=== PATIENT | female | born 1980 | race African-American/Black ===

== ENCOUNTER 2020-05-17 08:44 | Day surgery (SDC) | payer OTHER ==
[2020-05-17 08:56] LABS: Urine Appearance CLEAR; Urine Bilirubin NEGATIVE (NEG); Urine Blood NEGATIVE (NEG); Urine Color YELLOW; Urine Glucose NEGATIVE (NEG); Urine Protein NEGATIVE (NEG); Urine Urobilinogen 0.2 mg/dL (0.2-1.0); Urine pH 7.5 (5.0-7.0)
[2020-05-17 08:57] LABS: Urine Microscopic Reflex NO UMIC
--- NOTE | 2020-05-17 09:02 | RAD REPORT ---
EXAM DESCRIPTION: RAD - Chest Pa And Lat (2 Views) - 05/17/2020 8:51 am CLINICAL HISTORY: PRE OP Chest pain. COMPARISON: No comparisons FINDINGS: The lungs are clear. The heart is normal in size. No displaced fractures. IMPRESSION: No acute or concerning finding suspected.
[2020-05-17 09:11] LABS: Absolute Lymphocytes (CBC) 2.6 K/uL (0.7-4.9); Basophils % 0.4 % (0-1.3); Hematocrit 34.9 % (36.0-45.0); Lymphocytes % 45.9 % (15.3-44.8); MPV 8.9 fL (7.6-11.3); RBC Red Blood Cell Count 5.07 M/uL (3.86-4.86)
[2020-05-17] MEDS ORDERED: CEFAZOLIN/SWI 1gm 1 GM/10 ML SYR ONE (09:13)
[2020-05-17] MEDS ORDERED: Ringers Lactate 1,000 ML IV ONE ×4 (09:13→15:06)
[2020-05-17] MEDS ORDERED: SCOPOLAMINE HYDROBROMIDE PATCH TD ONE (09:13)
[2020-05-17] MEDS ORDERED: CEFAZOLIN SODIUM 1 GM/VIAL ONE (09:18)
[2020-05-17] MEDS ORDERED: NS 0.9% VIAL 40 ML ONE (09:18)
[2020-05-17] MEDS ORDERED: GENTAMICIN SULF 80 MG/2ML INJ ONE (09:18)
[2020-05-17] MEDS ORDERED: LIDOCAINE 1% W/EPI 1:100,000 MDV 20 ML VIAL ONE (09:19)
[2020-05-17] MEDS ORDERED: Mastisol Adhesive Liq ONE (09:19)
[2020-05-17] MEDS ORDERED: BACITRACIN 50000 UNIT VIAL ONE (09:19)
[2020-05-17] MEDS ORDERED: dexAMETHasone 10 MG/ML VIAL ONE (09:31)
[2020-05-17] MEDS ORDERED: GLYCOPYRROLATE 0.2 MG/ML SYR ONE ×2 (09:31)
[2020-05-17] MEDS ORDERED: ONDANSETRON 4 MG/2 ML VIAL ONE (09:31)
[2020-05-17] MEDS ORDERED: ROCURONIUM 50 MG/5 ML VIAL IV ONE ×2 (09:31→11:08)
[2020-05-17] MEDS ORDERED: FENTANYL CITR 250 MCG/5 ML ONE (09:31)
[2020-05-17] MEDS ORDERED: propofoL 200 MG/20 ML VIAL IV ONE (09:31)
[2020-05-17] MEDS ORDERED: MIDAZOLAM HCL 2 MG/2 ML INJ ONE (09:31)
[2020-05-17] MEDS ORDERED: LIDOCAINE 2% MPF 5 ML VIAL ONE (09:31)
--- OUTSIDE RECORDS SUMMARY | 2020-05-17 09:55 | XMS REPORT | Clinical Summary ---
:1980 Author Organization [facility] Address [address] [place] [address] Care Team Providers Name Role Phone Asked, No Pcp Primary Care Provider Unavailable Allergies No Known Allergies Medications Medication Sig Dispensed Refills Start Date End Date Status CITRANATAL 90 0 08/24/2019 Activ e DHA, ALGAL OIL, 90 mg iron-1 mg -50 mg-300 mg combo pack ferrous sulfate Take 1 tablet 3 08/10/2019 Discontinued 325 (65 FE) MG by mouth 2 9 (Sto p Taking at tablet (two) times a Discha rge) day. ferrous sulfate Take 1 tablet 60 tablet 0 08/30/2019 (FERROUSUL) 325 (325 mg total) 9 (65 FE) MG by mouth 2 tablet (two) times a day for 30 days. docusate sodium Take 1 capsule 20 capsule 0 08/30/2019 01 (COLACE) 100 MG (100 mg total) 9 capsule by mouth 2 (two) times a day for 10 days. ibuprofen Take 1 tablet 40 tablet 0 08/30/2019 Expir ed (ADVIL) 600 MG (600 mg total) 9 tablet by mouth every 6 (six) hours as needed for mild pain for up to 30 days. acetaminophen-co Take 1 tablet 20 tablet 0 08/30/2019 09/09/20 1 deine (TYLENOL by mouth every 9 WITH CODEINE #3) 4 (four) hours 300-30 mg per as needed for tabletIndication moderate pain s: acute pain for up to 10 days .Acute Pain. Active Problems Problem Noted Date Term 08/28/2019 (normal spontaneous vaginal delivery) 08/28/2019 Encounters Date Type Specialty Care Team Description 08/28/2019 Anesthesia Event Obstetrics and Bora Garcia Gynecology MD Gianluca 08/28/2019 - Hospital Encounter Obstetrics and Ifeanyi Rodrigues 08/30/2019 Gynecology MD Keke 08/25/2019 Hospital Encounter Obstetrics Ifeanyi Rodrigues MD after 05/17/2019 Immunizations Name Administration Dates Next Due Tdap 08/29/2019 Family History Medical History Relation Name Comments No Known Problems Father No Known Problems Mother Relation Name Status Comments Father Alive Mother Alive Social History Tobacco Use Types Packs/Day Years Used Date Never Smoker Smokeless Tobacco: Never Used Alcohol Use Drinks/Week oz/Week Comments Not Currently Sex Assigned at Date Recorded Not on file Job Start Date Occupation Industry Not on file Not on file Not on file Travel History Travel Start Travel End No recent travel history available. Last Filed Vital Signs Vital Sign Reading Time Taken Comments Blood Pressure 121/79 08/30/2019 7:13 AM [facility] Pulse 72 08/30/2019 7:13 AM [facility] Temperature 36.7 C (98 F) 08/30/2019 7:13 AM [facility] Respiratory Rate 18 08/30/2019 7:13 AM [facility] Oxygen Saturation 99% 08/29/2019 7:29 PM [facility] Inhaled Oxygen Concentration - - Weight - - Height - - Body Mass Index - - Plan of Treatment Health Maintenance Due Date Last Done Comments CERVICAL CANCER SCREENING 2003 INFLUENZA VACCINE 05/14/2020 Procedures Procedure Name Priority Date/Time Associated Comments Diagnosis HC COMPLETE BLD COUNT Routine 08/29/2019 5:53 Re sults for this W/AUTO DIFF AM [facility] procedure are i n the results section. ANESTHESIA EPIDURAL Routine 08/28/2019 4:33 Resu lts for this BLOCK PM [facility] procedure are i n the results section. HEPATITIS B SURFACE Routine 08/28/2019 8:40 Resu lts for this AG CONFIRMATION AM [facility] procedure ar e in the results section. TYPE AND SCREEN, Routine 08/28/2019 8:40 Results for this OBSTETRICAL PATIENT AM [facility] procedur e are in the results section. HEPATITIS B SURFACE Routine 08/28/2019 8:40 Resu lts for this ANTIGEN AM [facility] procedure are i n the results section. HC COMPLETE BLD COUNT Routine 08/28/2019 8:40 Re sults for this W/AUTO DIFF AM [facility] procedure are i n the results section. HIV 1, 2 ANTIBODY Routine 08/06/2019 Results fo r this procedure are i n the results section. HEPATITIS B SURFACE Routine 08/06/2019 Results for this ANTIGEN procedure are i n the results section. CBC WITH PLATELET AND Routine 08/06/2019 Result s for this DIFFERENTIAL procedure are i n the results section. RPR TITER WITH REFLEX Routine 08/06/2019 Result s for this TO CONFIRMATION procedure ar e in the results section. BETA STREP SCREEN Routine 08/06/2019 Results fo r this CULTURE WITH ALVAREZ procedure a re in BROTH the results section. RUBELLA AB IGG Routine 07/02/2019 Results for t his procedure are i n the results section. HIV 1, 2 ANTIBODY Routine 07/02/2019 Results fo r this procedure are i n the results section. HEPATITIS B SURFACE Routine 07/02/2019 Results for this ANTIGEN procedure are i n the results section. CBC WITH PLATELET AND Routine 07/02/2019 Result s for this DIFFERENTIAL procedure are i n the results section. GESTATIONAL DIABETES Routine 07/02/2019 Results for this SCREEN procedure are i n the results section. TYPE AND SCREEN, Routine 07/02/2019 Results for this OBSTETRICAL PATIENT procedur e are in the results section. RPR TITER WITH REFLEX Routine 07/02/2019 Result s for this TO CONFIRMATION procedure ar e in the results section. CHLAMYDIA CULTURE Routine 07/02/2019 Results fo r this procedure are i n the results section. GONORRHOEAE CULTURE Routine 07/02/2019 Results for this procedure are i n the results section. after 05/17/2019 Results CBC with platelet and differential (08/29/2019 5:53 AM [facility])Only the most recent of4 resultswithin the time period is included. WBC 8.6Comment: 4.5 - 11.0 DIVYA WRIGHT Results repeated k/uL [facility] RBC 4.76 4.20 - 5.50 [facility] M[facility]uL [facility] HGB 10.8 (L) 14.0 - 18.0 [facility] g/dL [facility] HCT 33.4 (L) 37.0 - 47.0 % [facility] MCV 70.2 (L) 82.0 - 100.0 [facility] fL [facility] MCH 22.7 (L) 27.0 - 34.0 EDEN SIKHISM pg [facility] MCHC 32.3 31.0 - 37.0 [facility] g/dL [facility] RDW - SD 37.4 37.0 - 55.0 [facility] fL [facility] MPV 13.0 8.8 - 13.2 fL [facility] Platelet count 185 150 - 400 [facility] K/uL [facility] Nucleated RBC 0.00 /100 WBC [facility] Neutrophils 73.6 (H) 39.0 - 69.0 % [facility] Lymphocytes 17.7 (L) 25.0 - 45.0 % [facility] Monocytes 8.0 0.0 - 10.0 % [facility] Eosinophils 0.3 0.0 - 5.0 % [facility] Basophils 0.1 0.0 - 1.0 % [facility] Immature 0.3Comment: 0.0 - 1.0 % [facility] granulocytes "Immature [facility] (promyelocytes, myelocytes, metamyelocytes) Specimen Blood Performing Organization Address City/[facility]/Zipcomn Phone Number [facility] DEPARTMENT OF PATHOLOGY [address] [place] [address] [phone] AND [facility]INE [facility] [address] [facility] [address] [place] [address] [facility] Epidural Block (08/28/2019 4:33 PM [facility]) Narrative Performed At Bora Garcia MD 08/14 4:34 PM Epidural Block Date/Time: 08/28/2019 4:25 PM Performed by: Bora Garcia MD Authorized by: Bora Garcia MD Patient Location: OB Start Time: 08/28/2019 4:16 PM End Time: 08/28/2019 4:33 PM Reason for Block: at surgeon's request, post-op pain m anagement, procedure for pain, labor epidural Anesthesiologist: Bora Garcia MD Performed by: Anesthesiologist Preprocedure: patient identified, IV magdaleno cked, site and side verified, risks and benefits discussed, procedure verified, surgical consent completed, patient position confirmed, m onitors and equipment checked, pre-op evaluation completed and coagulat ion status reviewed Time Out Performed: 08/28/2019 4:16 PM Patient Position: Sitting Prep: ChloraPrep and patient draped Monitoring: Blood pressure monitoring, continuous pulse oximetry and heart rate Approach: Midline Interspace: L3-4 Injection Technique: SIMONA air and SIMONA s rosalia Needle Type: Bernadine Needle Gauge: 17 Loss of resistance: 5 cm Catheter at Skin Depth: 10 cm Test Dose: Negative and lidocaine 1.5% with epinephrine 1-to-200,000 Number of Attempts: 1 Pump program started: pain pump Block Outcome: No apparent complications, patient co mfortable and patient tolerated procedure well Post-procedure: Sterile dressing appli ed, patient returned to supine position and left lateral displacement Events: no paresthesia, no blood aspirat ed and no CSF Time: 08/28/2019 4:16 PM Pump program changed: pain pump Medications Administered Lidocaine 1.5% w/epINEPHrine PF (mg), 3 mL Type and screen, obstetrical patient (08/28/2019 8:40 AM [facility])Only the most recent of2 resultswithin the time period is included. Pathologist Sig nature ABO grouping O [facility] Rh type POS [facility] Antibody screen (gel) NEG [facility] Specimen Blood Performing Organization Address City/[facility]/Zipcode Phone Number [facility] DEPARTMENT OF PATHOLOGY [address] [place] [address] [phone] AND [facility] [address] [facility] [address] [place] [address] HOSPITAL Hepatitis B surface Ag confirmation (08/28/2019 8:40 AM [facility]) Hepatitis B surface Confirmed (A) Non-reactive [facility] confirmation HOSPITAL Specimen Performing Organization Address City/[facility]/Zipcode Phone Number [facility] DEPARTMENT OF PATHOLOGY AND [address] [place] [address] [phone] [address] Hepatitis B surface antigen (08/28/2019 8:40 AM M[facility]MIST)Only the most recent of3 resultswithin the time period is included. Hepatitis B Reactive (A) Non-reactive [facility] Ag Comment: HOSPITAL Sent to [facility] for confirmation . Notified Lenore Garcia RN at 11:18 08/28/2019 [email or web address] Specimen Blood Performing Organization Address City/State/Zipcode Phone Number [facility] DEPARTMENT OF PATHOLOGY AND [address] [place], [place] [phone] [facility] [address] [place] [address] RPR titer with reflex to confirmation (08/06/2019)Only the most recent of2 resultswithin the time period is included. Pathologist Sig nature RPR (dx) w/refl titer nonreactive EXTERNAL LAB and confirmatory NON-INTERFACED testing Specimen Blood Performing Organization Address [facility] Phone Number EXTERNAL LAB NON-INTERFACED Beta strep screen culture with alvarez broth (08/06/2019) Pathologist Sig nature Strep gp B culture negative EXTERNAL LAB NON-INTERFACED Specimen Vaginal Performing Organization Address [facility] Phone Number [facility] NON-INTERFACED HIV 1, 2 antibody (08/06/2019)Only the most recent of2 resultswithin the time period is included. Pathologist Sig nature HIV 1, 2 antibody negative EXTERNAL LAB NON-INTERFACED Specimen Blood Performing Organization Address [facility] Phone Number EXTERNAL LAB NON-INTERFACED Gestational Diabetes Screen (07/02/2019) Pathologist Sig nature Gestational diabetes 97 EXTERNAL LAB screen NON-INTERFACED Specimen Blood Performing Organization Address [facility] Phone Number EXTERNAL LAB NON-INTERFACED Rubella Ab IgG (07/02/2019) Pathologist Sig nature Rubella IgG antibody immune EXTERNAL LAB NON-INTERFACED Specimen Blood Performing Organization Address [facility] Phone Number EXTERNAL LAB NON-INTERFACED Chlamydia culture (07/02/2019) Pathologist Sig nature Chlamydia culture negative EXTERNAL LAB isolate NON-INTERFACED Specimen Swab Performing Organization Address [facility] Phone Number EXTERNAL LAB NON-INTERFACED Gonorrhoeae culture (07/02/2019) Pathologist Sig nature Gonorrhoeae culture negative EXTERNAL LAB isolate NON-INTERFACED Performing Organization Address [facility] Phone Number EXTERNAL LAB NON-INTERFACED after 05/17/2019 Insurance Payer Benefit Plan / Subscriber ID Effective Dates Phone Addre ss Type Group [employer] 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
--- OUTSIDE RECORDS SUMMARY | 2020-05-17 09:56 | XMS REPORT | Continuity of Care Document ---
:1980 Author Organization [employer] Care Team Providers Name Role Phone [employer] Unavailable Un available Problems Problem Status Onset Classification Date Comments Sourc e Date Reported Other specified 06/05/20 06/07/2019 [facility] 19 Hospital related conditions, unspecified trimester 27 weeks 06/05/20 [facility] ABDOMINAL PAIN Active 06/05/20 [facility] 19 [place] Patient Active 11/27/19 Problem 06/07/2019 [place] [address] [facility], (finding) [facility] CONTRACTIONS Active 10/31/[address] R/O LABOR Active 10/14/[address] VAGINAL DEL Active 09/30/[address] INDUCTION Active 09/30/[address] 2 MONTHS PREG Active 10/18/19 The WITH VAG BLEED 14 [place] Anemia Resolved Problem 12/06/2015 [facility] (disorder) [facility] Thalassemia Active Problem 12/06/2015 [facility] (disorder) [facility] Active [facility] RELATED Medical CONDITIONS, Center UNSP, UNSP PROLONGED Active [facility] Medications Medication Details Route Status Patient Ordering Order Source Instructions Provider Date 1 tab, Route: [facility] oral PO, Drug Active 2015 Medi prashanth tablet Form: TAB, Center Dosing Weight 85, kg, Daily, Start date: 12/02/15 9:00:00, Duration: 30 day, Stop date: 12/31/15 9:00:00 1 tab, PO, Active 12/01/ [facility] Multivitamins with Daily, # 30 2016 M edical Folic Acid 0.8 mg tab, 6 Center oral tablet Refill(s) ibuprofen 600 mg 600 mg = 1 Active 12/01/ [place] oral tablet tab, PO, Q6H, 2016 Medica l PRN Pain Center Score 4-6, # 40 tab, 0 Refill(s) docusate sodium 100 mg = 1 [place] mg oral cap, PO, BID, 2016 Medica l capsule PRN Center Constipation, # 60 cap, 0 Refill(s) 0.5 ML Bordetella Notes: (Tdap No Longer [facility] pertussis ) For Active 2016 Medical filamentous Adolecent and Center hemagglutinin Adult use For vaccine, IM Use. Same inactivated 0.01 as: Adacel MG/ML / Bordetella (Tdap) pertussis fimbriae 2/3 vaccine, inactivated 0.01 MG/ML / Bordetella pertussis pertactin vaccine, inactivated 0.006 MG/ML / Bordetella pertussis toxoid vacci M-M-R II Notes: (Same No Longer [facility] as: M-M-R II) Active 2015 Medical (measles-mum Center ps-rubella virus vaccine 0.5 ml INJ VL) WASTE: F/P - Red; E -Red GIVE PRIOR TO DISCHARGE Ibuprofen Notes: (Same No Longer [facility] s as: Motrin) Active 2015 Medical "Do Not Center Crush" Take with food. Acetaminophen Notes: Do not No Longer [place] exceed 4 Active 2015 [facility] gm/day. Center (Same as: Tylenol) lanolin topical Notes: (Same No Longer H [place] as:Lanolin) Active 2016 [facility] Center zolpidem Notes: (Same No Longer [facility] As: Ambien) Active 2016 [facility] Center Methylergonovine Notes: (Same No Longer [place] as:Methergine Active 2015 Medical ) Center Benzocaine 200 Notes: (Same No Longer [facility] MG/ML Topical As: Active 2015 Medical [place] [Dermoplast] Dermoplast) C enter WASTE: Aerosol - Return to Pharmacy FOR EXTERNAL USE ONLY Bisacodyl Notes: (Same No Longer [place] As: Dulcolax, Active 2015 [facility] Bisco-Lax) Center Lactated Ringers 1,000 mL, No Longer [place] IV 1,000 mL Rate: 100 Active 2015 Medical ml/hr, Infuse Center over: 10 hr, Route: IV, Dosing Weight 85 kg, Total Volume: 1,000, Start date: 12/01/15 10:25:00, Duration: 30 day, Stop date: 12/31/15 10:24:00 Oxytocin 0.06 Notes: (Same No Longer [place] UNT/ML Injectable as: Active 2016 Medica l Solution OXYTOCIN-D5LR Center ) Docusate Notes: (Same No Longer [place] as: Colace) Active 2016 Medical (Do Not Center Crush) Ondansetron Notes: (Same No Longer [place] as: Zofran) Active 2015 Medical Center MEDICATION WASTE Product Size: 4 mg Product Wasted: ___ mg Oxytocin 0.06 Notes: (Same No Longer [place] UNT/ML Injectable as: Active 2015 Medica l Solution OXYTOCIN-D5LR Center ) Citric Acid / Notes: (Same No Longer [place] sodium citrate As: Bicitra, Active 2015 [facility] Cytra-2) Center Sodium citrate-citri c acid (500-334 mg/5 mL): 1 mL contains sodium 1 mEq/mL and bicarbonate 1 mEq/mL Carboprost Notes: (Same No Longer [place] as As: Hemabate) Active 2016 Medical Center Misoprostol Notes: (Same [place] Longer [place] as:Cytotec) Active 2016 Medical Take with Center food Methylergonovine Notes: (Same No Longer [place] as:Methergine Active 2015 Medical ) Center Famotidine Notes: (Same No Longer [place] as as: Pepcid) Active 2016 Medical Can be dilute Center in 5-10cc NS IVP: Slow IV push over at least 2 minutes. 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 AREA Center (Same As: Kaylin) Calcium Chloride 1,000 mL, Inactive [place] 0.0014 MEQ/ML / 1,000 ml/hr, 2016 Med ical Potassium Chloride Infuse Over: Center 0.004 MEQ/ML / 1 hr, Route: Sodium Chloride IV, 1,000, 0.103 MEQ/ML / Drug form: Sodium Lactate INJ, ONCE, 0.028 MEQ/ML Dosing Weight Injectable 85 kg, Start Solution date: 12/01/15 1:55:00, Stop date: 12/01/15 1:55:00, Bolus for regional anesthesia per unit protocol lidocaine 1% Notes: (Same No Longer [place] injectable as: Active 2015 Medical solution Xylocaine) Center Oxytocin 0.06 Notes: (Same Inactive [place] UNT/ML Injectable as: 2015 Medica l Solution OXYTOCIN-D5LR Center ) Lactated Ringers 1,000 mL, No Longer [place] IV 1,000 mL Rate: 125 Active 2015 Medical ml/hr, Infuse Center over: 8 hr, Route: IV, Dosing Weight 85 kg, Total Volume: 1,000, Start date: 12/01/15 1:55:00, Duration: 30 day, Stop date: 12/31/15 1:54:00 Butorphanol Notes: (Same No Longer [place] As: Stadol) Active 2015 Medical Center MEDICATION WASTE Product Size: 2 mg Product Wasted: ___ mg lidocaine 1% Notes: (Same No Longer [place] as: Active 2015 Medical Xylocaine) Center Ondansetron Notes: (Same Inactive [place] as: Zofran) 2015 Medical Center MEDICATION WASTE Product Size: 4 mg Product Wasted: ___ mg Fe C 1 tab, PO, Active [place] Daily, 0 2015 Medical Refill(s) [place] 5/325 oral 1-2 tab, PO, Active May 14 The tablet Q4-6H, Pain, 2013 [place] # 15 tab, 0 Refill(s) Cytotec 200 mcg 200 microgram Active May 14 The oral tablet = 1 tab, PO, 2013 [facility] ds QID, # 4 tab, 0 Refill(s) acetaminophen-hydr 1 tab, Route: Inactive May 14 The ocodone 325 mg-5 PO, Drug 2013 [facility] nds mg oral tablet Form: TAB, Dosing Weight 52.273, kg, ONCE, STAT, Start date: 10/19/13 2:21:00, Stop date: 10/19/13 2:21:00(Same as: [place] 325/5) Do not exceed 4gm/day of acetaminophen . Allergies, Adverse Reactions, Alerts No Known Medication Allergies Immunizations No Data Provided for This Section Results Order Name Results Value Reference Date Interpretation Comments Grace rce Range HEMATOLOGY Hgb 9.6 12.0 - 12/02 [place] 16.0 /2016 [facility] HEMATOLOGY Hct 29.1 36.0 - 12/02 [place] 48.0 /2016 [facility] HEMATOLOGY MPV 9.1 7.4 - 10.4 12/01 [facility] HEMATOLOGY Platelet 191 133 - 450 12/01 /2015 [facility] HEMATOLOGY RDW 15.9 11.5 - 12/01 [place] 14.5 /2016 [facility] HEMATOLOGY Hgb 10.0 12.0 - 12/01 [place] 16.0 2016 [facility] HEMATOLOGY Hct 30.9 36.0 - 12/01 [place] 48.0 [facility] HEMATOLOGY MCV 69.1 80.0 - 12/01 [place] 98.0 /2015 [facility] HEMATOLOGY WBC 5.9 3.7 - 10.4 12/01 [facility] HEMATOLOGY RBC 4.46 4.20 - 12/01 [place] 5.40 /2016 [facility] HEMATOLOGY MCH 22.4 27.0 - 12/01 [place] 31.0 /2016 [facility] HEMATOLOGY MCHC 32.5 32.0 - 12/01 [place] 36.0 2016 [facility] HEMATOLOGY Monocytes # 0.5 0.0 - 0.8 12/01 [place] /2015 [facility] HEMATOLOGY Lymphocytes 2.2 1.0 - 5.5 12/01 [place] # /2015 [facility] HEMATOLOGY Microcyte 2+ None Seen 12/01 [place] *ABN* /2015 Medical (12/01/15 2:29 AM) [place] HEMATOLOGY Segs-Bands # 3.2 1.5 - 8.1 12/01 [place] as /2015 [facility] HEMATOLOGY Basophils 0.3 0.0 - 1.0 12/01 /2015 [facility] HEMATOLOGY Segs 54.6 45.0 - 12/01 [place] 75.0 /2016 [facility] HEMATOLOGY Lymphocytes 36.7 20.0 - 12/01 [place] 40.0 /2016 [facility] HEMATOLOGY Monocytes 8.0 2.0 - 12.0 12/01 [place] /2016 [facility] HEMATOLOGY Eosinophils 0.4 0.0 - 4.0 12/01 [place] /2015 [facility] IMMUNOLOGY Treponemal Non Reactive Non 12/01 [place] *NA* Reactive /2015 Medical (12/01/15 2:29 AM) [place] IMMUNOLOGY Hep Bs Ag Confirmed 1 12/01 Result Erica s Conf *NA* /2015 Comment: Medical (12/01/15 2:29 AM) "Significant C enter Findings called to [facility]_at 12/01/2015 06:48__by stp__.Read Back OK." IMMUNOLOGY Hep Bs Ag Positive Negative 12/01 [place] *NA* /2015 Medical (12/01/15 2:29 AM) [place] IMMUNOLOGY HIV. Negative Negative 12/01 [place] *NA* /2015 [facility] (12/01/15 2:29 AM) [place] BLOOD BANK Antibody Negative 12/01 [facility] RESULTS Scrn (12/01/15 2:21 AM) Medica l [place] BLOOD BANK ABO/Rh O POS 12/01 [facility] RESULTS /2015 [facility] CHEMISTRY hCG Tot [id number] 10/19 <sup>1</sup> [facility] Data: Reference Range:
Male 0 - 5 mIU/mL
Non- Female 0 - 5 mIU/mL
< br/>Note: hCG result should be used in conjunction with symptoms, results
of other tests, and clinical impressions.
<br/ >Weeks of Gestation hCG (mIU/mL)<br/ > ------- ----
3 6 - 71
4 10-750
5 217 - 7,138
6 158 -31,795<br/& gt; 7 3,697 - 163,563
8 32,065 - 149,571
9 63,803 - 151,410
10 46,506 - 186,977<b r/> 11 27,832 - 210,612
14 13,950 - 62,530
15 12,039 - 70,971
16 9,040 - 56,451
17 8,175 - 55,868
18 8,099 - 58,176 HEMATOLOGY Platelet 268 133 - 450 01/ Normal The [place] HEMATOLOGY MPV 9.0 7.4 - 10.4 / Normal The [place] HEMATOLOGY Hgb 11.4 12.0 - 10/19 LOW The 16.0 [place] HEMATOLOGY RBC X 10x6 4.98 4.20 - 10/19 Normal The 5.40 [place] HEMATOLOGY WBC X 10x3 6.6 3.7 - 10.4 / Normal The [place] HEMATOLOGY Hct 35.2 36.0 - 10/19 LOW The 48.0 [place] HEMATOLOGY MCHC 32.2 32.0 - 10/19 Normal The 36.0 [place] HEMATOLOGY MCH 22.8 27.0 - 10/19 LOW The 31.0 [place] HEMATOLOGY MCV 70.7 81.0 - 10/19 LOW The 99.0 [place] HEMATOLOGY RDW 14.0 11.5 - 10/19 Normal The 14.5 [place] HEMATOLOGY Lymphocytes 1.4 1.0 - 5.5 01/ Normal The [place] HEMATOLOGY Segs-Bands # 4.6 1.5 - 8.1 / Normal The [place] HEMATOLOGY Eosinophils 0.1 0.0 - 0.5 / Normal The # [place] HEMATOLOGY Basophils # 0.1 0.0 - 0.2 01/ Normal The [place] HEMATOLOGY Segs 70.4 45.0 - 10/19 Normal The 75.0 [place] HEMATOLOGY Monocytes # 0.4 0.0 - 0.8 01/06 Normal The [place] HEMATOLOGY Lymphocytes 21.2 20.0 - / Normal The 40.0 [place] HEMATOLOGY Basophils 1.0 0.0 - 1.0 01/ Normal The [place] HEMATOLOGY Monocytes 6.6 2.0 - 12.0 01/06 Normal The [place] HEMATOLOGY Eosinophils 0.8 0.0 - 4.0 01/ Normal The [place] Pathology Reports No Data Provided for This Section Diagnostic Reports Report Value Date Source complete NAME: SHAMIKA HU 10/19/2013 [facility] Single Gestation US : 1980 SEX: F MRN: [id number] Ordering Physician: Maricruz Dunn Complete Single Gestation : Oct 19, 2013 03:19:00 AM. CLINICAL INDICATION: Vaginal Bleeding. Comparison Examination: None. FINDINGS: The pelvic ultraso und static images show that the uterus measures 10.4 x 6 x 6.2 cm. There is an anteverted uterus. There is an anechoic focus s een in the lower uterine segment/cervix region, suggestive of a gestation sac. The sac measures approximately 1.4 x 1.2 x 1.1 cm. No pole or yolk sac is seen. Thickened , heterogeneous echotexture endometrial stripe is noted, measuring 3 cm. Recommend short interval followup with quantitative beta-hCG levels and sonography. The right ovary measures 3.7 x 2 x 3.1 cm and the left ovary measures 4.4 x 2.3 x 3.7 cm. Right ovarian corpus luteum type 1.9 x 1.3 x 1.8 cm cyst is seen. There is normal left ovarian contour and morphology. There are no adnexal masses. The limited Doppler images s how normal bilateral ovarian arterial and venous Doppler blood flow. There is no free fluid in the cul-de-sac. Opinion: 1. Anechoic focus seen in e lower uterine segment/cervix region, suggestive of a gestation sac. The sac measures approximately 1.4 x 1.2 x 1.1 cm. No pole or yolk sac seen. Thickened, heterogene ous echotexture endometrial stripe noted, measuring 3 cm. Recommend short interval followup with quantitative beta-hCG levels and sonography. 2. Right ovarian corpus luteum type 1.9 x 1.3 x 1.8 cm cyst. SL: 24 Consultation Notes No Data Provided for This Section Discharge Summaries No Data Provided for This Section History and Physicals No Data Provided for This Section Vital Signs Vital Sign Value Date Comments Source Systolic (mm Hg) 114 06/05/2019 [facility] Diastolic (mm Hg) 59 06/05/2019 [facility] Heart Rate 81 06/05/2019 [facility] Respitory Rate 16 06/05/2019 [facility] Temperature Oral (F) 98.1 F 06/05/2019 [facility] Height 162.56 cm 06/05/2019 [facility] BMI Calculated 33.37 06/05/2019 [facility] Weight 88.182 06/05/2019 [facility] Systolic (mm Hg) 116 12/03/2015 [facility] [place] Diastolic (mm Hg) 75 12/03/2015 [facility] Respitory Rate 18 12/03/2015 [facility] Heart Rate 80 12/03/2015 [facility] Temperature Oral (F) 98.2 F 12/03/2015 [facility] Systolic (mm Hg) 122 12/03/2015 [facility] Center Diastolic (mm Hg) 78 12/03/2015 [facility] Respitory Rate 18 12/03/2015 [facility] Heart Rate 67 12/03/2015 [facility] Temperature Oral (F) 98.2 F 12/03/2015 [facility] Temperature Oral (F) 98.1 F 12/03/2015 [facility] Center Systolic (mm Hg) 125 12/03/2015 [facility] Center Diastolic (mm Hg) 71 12/03/2015 [facility] Respitory Rate 18 12/03/2015 [facility] Heart Rate 77 12/03/2015 [facility] Height 162.56 cm 12/01/2015 [facility] BMI Calculated 32.17 12/01/2015 [facility] prashanth [place] Weight 85 12/01/2015 [facility] Systolic (mm Hg) 119 11/26/2015 [facility] Center Diastolic (mm Hg) 67 11/26/2015 [facility] Temperature Oral (F) 98.2 F 11/26/2015 [facility] Center Respitory Rate 22 11/26/2015 [facility] prashanth Center Weight 84.818 11/26/2015 [facility] Medica l Center BMI Calculated 32.1 11/26/2015 [facility] prashanth Center Height 162.56 cm 11/26/2015 [facility] BMI Calculated 31.99 11/26/2015 [facility] prashanth Center Weight 84.545 11/26/2015 [facility] Height 162.56 cm 11/26/2015 [facility] Center Systolic (mm Hg) 92 10/31/2015 [facility] Center Diastolic (mm Hg) 54 10/31/2015 [facility] [place] edical Center Weight 84.091 10/31/2015 [facility] Height 162.56 cm 10/31/2015 [facility] [place] BMI Calculated 31.82 10/31/2015 [facility] Center Diastolic (mm Hg) 58 10/19/2013 [facility] [place] Respitory Rate 20 10/19/2013 [facility] nds Systolic (mm Hg) 108 10/19/2013 [facility] Heart Rate 76 10/19/2013 [facility] [place] Weight 52.273 10/19/2013 [facility] [place] Height 165.1 cm 10/19/2013 [facility] [place] Heart Rate 81 10/19/2013 [facility] [place] Respitory Rate 18 10/19/2013 [facility] nds Diastolic (mm Hg) 69 10/19/2013 [facility] Systolic (mm Hg) 119 10/19/2013 [facility] Encounters Location Location Encounter Encounter Reason Attending ADM DC Stat us Source Details Type Number For Provider Date Date Visit The Emergency [id number] 2 MARICRUZ MAY 1410/19 Acti ve [place] 0 [facility] d PREG s WITH VAG BLEED [facility] OBS [id number] [facility]/31 [facility] [place] Patient [facility] OBS [id number] Apolinar 11/26 11/26 [facility] Observation 4 Gavin [facility] Inpatient [id number] Ifeanyi 12/01 12/03 [facility] 2 [facility] Emergency [id number] Avtar Shipley 06/05 06/05 [place] [facility] Procedures No Data Provided for This Section Assessment and Plan Assessment and Plan Date Source Extracted from:Title: Clinical Document 12/03/2015 [facility] Author: Marta Childers MD Date: 12/03/15 Discharge Summary Admission Date: 12/01/2015 Admission Diagnosis: 1) IUP at 39w4d 2) Hepatitis B 3) Sickle Cell Trait 4) Alpha thalassemia Discharge Date: 12/03/2015 Discharge Diagnosis: 1) s/p TSVD 2) Hepatitis B 3) Sickle Cell Trait 4) Alpha Thalassemia History and Physical: Please see H&P by Dr. Clark dated 12/01/2015 Procedures: On 12/01/2015 the patient und erwent a term spontaneous vaginal delivery. The procedure was uncomplicated and patient delivered a viable female infant. APGARS 9/9, weight 3690 gms. Hospital Course: Patient is a 35 y/o G4P 2011 who was admitted on 12/01/2015 for elective induction of labor. Patient subsequently underwent an uncomplicated term vaginal delivery. Regarding patient&apos ;s Hepatitis B- patient was on no medica tions, LFT's were wnl, and hepatitis C was negative. Pediatrics was made aware of this and baby received HBIG and Hep B vaccinations. Regarding SCT, father o f baby was negative and patient declined genetic counseling. Urine culture only had skin camilo. Regarding alpha thalassemia, pt reported compliance with Oral iron therapy. During the admission, patient was meeting all milestones. S he was tolerating PO, voiding freely, and pain was well-controlled on PO regimen. Pt is stable for discharge home on PPD #2, now . Medications: Please see home medication reconciliation form Dispo: Patient stable for discharge home today with prescriptions given for Colace, vitamin, Ibuprofen. Patient is instructed to contnue oral iron therapy. Patient to return to [facility] in 4-6 weeks. Pending Labs: None Marta Childers MD PGY1 Extracted from:Title: OB Progress Note Author: Marta Childers MD Date: 12/03/15 Impression and Plan A/P: 35 y/o G4 now P3013 s/p TSVD, PPD#2, doing well 1) PPD#2: AFVSS, meeting milestones 2) H/o Hep B: No meds. LFTs wnl. Hep B s urface antigen and confirmatory testing positive, Hep C negative. 3) Acute on chronic anemia: Hgb 10--> 200 cc--> 9.6, no s/sx of anemia 4) Alpha thalassemia: Hgb 9.6, patient with no sx of anemia 5) Sickle Cell trait: Urine culture neg/ skin camilo only. 6) PNLs:Rh+/ HIV neg/ RPR NR 7) Br+Douglas/ BCM: Nexplanon 8) Dispo- pt for discharge home today. Marta Childers MD PGY1 Extracted from:Title: Clinical Document Author: Ifeanyi Clark MD Date: 12/01/15 R1 Admit H&P LMP: 02/28/15 EDC: 12/05/15 EGA: 39w4d HPI: 35yo at 39w4d dated by LMP c/w doc 18 wk sono (external medical records) with Hep B, alpha thalassemia, sickle cell trait presents for an elective induction of labor. Denies LOF or VB. +FM. PNC: [facility], last appt 11/25/15 1. Dated as above 2. Hospitalizations: none 3. US: 07/11/15: Cephalic, S=D, Cephalic, 2VC, posterior fundal placenta, EFW 82%ile. 10/13/15: Cephalic, 3 VC posterior fundal placenta, no previa, AYAAN 12.0, anatomy wnl. EFW 63rd %ile. 4. HepB: No meds. LFTs wnl. Hep B surfac e antigen and confirmatory testing positive, Hep C negative. 5. Sickle Cell trait: FOB neg per brad t, ministerio GC. Urine culture neg/ skin camilo only. 6. Alpha thalassemia: Most recent Hgb 9. 7/MCV 72.6. Pt reports compliance with taking oral Fe sulfate. 7. PNL:O+, Hgb 10.4/32.5 (06/08/15), Hgb Elec- Sickle Trait/Alpha Thal, 1hr GCT 97, HBsAg reactive/confirmed, HCV neg, 3THIV neg (11/10/15), GBSneg (11/10/15) RPR NR, Rubella Imm, G/C neg/neg, Pap NIL (06/07/15) HRHPV neg 8. Br+Douglas / WE / Nexplanon OB Hx: 2011- TSVD, M, 8#10, [place], no cx 2013- SAB, D&C 2014- TSVD, F, 6#15, [facility], no cx [employer] Hx: 14/R/5. Denies h/o STDs or abl pap smears. PMH: Hep B, Alpha Thal PSH: D&C Meds: PNV, Iron Allergies: NKDA FHx: denies SHx: negx3 Physical Examination Vitals: Defer to L&D Gen: NAD Lungs: CTAB CV: rrr no M/G/R Abd: Soft, NT/ND, gravid SVE: 3/50/-2 at 0200 FHTs: 130s, mod richie, + accel, - decel [place]: ctx q 8-10 min US: cephalic, posterior placenta A/P: 35yo at 39w0d dated by LMP c/w doc 18 wk sono (external medical records) with Hep B, alpha thalassemia, sickle cell trait presents for an elective induction of labor. 1. IOL: BS- 6, pelvis adequate, will augment with pitocin. 2. FHTs: category I, reassuring 3. GBS neg/3THIV neg 4. Pain: Epidural 5. HepB: No meds. LFTs wnl. Hep B surfac e antigen and confirmatory testing positive, Hep C negative. - will avoid invasive monitoring - NICU notified. 6. Sickle Cell trait: FOB neg per patien t, declines genetic counseling. Urine culture neg/ skin camilo only. 7. Alpha thalassemia: Most recent Hgb 9. 7/MCV 72.6. Pt reports compliance with taking oral Fe sulfate. - Admission Hb pending 8. C/ 3500g [place]/ posterior placenta 9. Br+Douglas / Nexplanon pt dw. Dr. Óscar Gordon MD PGY1 R4 Addendum Pt seen in L and D with Dr Gordon and agree with above 35yo at 39w0d dated by LMP c/w d oc 18 wk sono with Hep B, alpha thalassemia, sickle cell trait presents for an elective induction of labor. BS 6 , will start pitocin cat 1 EFM Rosalia Cantrell MD PGY4 Attending Note: Patient discussed with Dr. Cantrell and I agree with the [facility] plan of care. Extracted from:Title: OB H&P 11/26/2015 [facility] Author: Steffi Mcdonnell MD Date: 11/26/15 Impression and Plan A/P: 35yo at 38w5d dated by rep 1T sono with Hep B presents to triage c/o ctx 1. [place] Ben[place] ctx: Cervix was 2cm in clinic yesterday and is still 2cm today. Pt appears comfortable. Pt is not in labor. 2. Reactive NST 3. Pt was discussed with Dr. Jett. Steffi Mcdonnell, PGY3 Extracted from:Title: OB H&P 10/31/2015 [facility] Author: Steffi Mcdonnell MD Date: 10/31/15 Impression and Plan A/P: 35yo at 35w0d dated by rep 1T sono with Hep B presents to triage c/o ctx 1. [place] ctx: Cervix is 1cm dila gabriela. No ctx on toco. Pt is not in labor. 2. Reactive NST Discharge to home. Pt was given labor precautions. Pt has f/ u on 11/02/15. Steffi Mcdonnell, PGY3 Plan of Care No Data Provided for This Section Social History Social History Date Source Social History TypeResponse 06/05/2019 [facility] Alcohol Never Substance Abuse Use: None. Smoking Status Never smoker; Exposure to Tobacco Smoke None; Cigarette Smoking Last 365 Days No; Reg Smoking Cessation Counseling No entered on: 06/05/19 Social History TypeResponse 12/01/2015 [facility] Sexual History of sexual abuse: No. Employment/School Highest education level: Some college. Smoking Status Never smoker; Exposure to Tobacco Smoke None; Cigarette Smoking Last 365 Days No; Reg Smoking Cessation Counseling No Family History No Data Provided for This Section Advance Directives No Data Provided for This Section Functional Status No Data Provided for This Section
--- OUTSIDE RECORDS SUMMARY | 2020-05-17 09:58 | XMS REPORT | Continuity of Care Document ---
:1980 Author Organization [facility] t Address [address] [place] [address] Care Team Providers Name Role Phone Asked, Pcp Primary Care Physician Unavailable Keke Rodrigues MD Attending Clinician Gianluca Garcia MD Attending Clinician Violetta Attending Clinician MAHSA Attending Clinician Unavailable Wiliam Clark Attending Clinician Placido Gavin Attending Clinician Raudel Paris Attending Clinician Wiliam Clark Admitting Clinician Placido Gavin Admitting Clinician Raudel Paris Admitting Clinician Payers Payer Name Policy Type Policy Number Effective Date Expiration Date [facility] xxxxxxxxx 2019 [facility] 00:00:00 Caodaism [facility]STAR MCDxxxxxxxxx/-[facility] O Problems Condition Condition Condition Status Onset Resolution Last Treating Co mments Source Name Details Category Date Date Treatment Clinician Date Term Term Disease Active 2018-10 [place] 1-15 Meth ashley 00:00: st 00 Disease Active 2018-10 [place] (normal (normal 1-15 Methodi spontaneou spontaneou 00:00: st s vaginal s vaginal 00 delivery) delivery) ABDOMINAL Diagnosis Active 2020-04-27 Memoria PAIN 8-23 14:26:00 l 00:00: Heriberto ABDOMINAL 00 PAIN Active 06/05/2019 [facility] [place] Patient Problem Active 2019-06-07 Barry kervin currently 2-14 21:35:05 l Patient 00:00: Patricia nn (finding) currently 00 (finding) Active 11/27/2018 Problem 06/07/2019 [facility] CONTRACTIO Diagnosis Active 2015-11-01 Memoria NS 1-18 17:11:00 l 00:00: [place] CONTRACTIO 00 NS Active 6 [facility] R/O LABOR Diagnosis Active 2015-11-29 Memoria 1- 09:13:00 l R/O 00:00: Heriberto LABOR 00 Active 10/14/2015 [facility] VAGINAL Diagnosis Active 2014-102015-11-30 Me moria DEL 12-01 11:21:00 l VAGINAL 06:00: [place] DEL 00 Active 09/30/2015 [facility] INDUCTION Diagnosis Active 2014-102015-12-01 Memoria 12-01 00:54:00 l 06:00: [place] INDUCTION 00 Active 09/30/2015 [facility] 2 MONTHS Diagnosis Active 2013-12-07 M emoria PREG WITH 1-05 11:33:00 l VAG BLEED 2 MONTHS 18:00: Her porter PREG WITH 00 VAG BLEED Active 10/18/2013 [facility] [place] Sickle-chava Sickle-chava Problem Active U nivers l trait l trait HL7.CCDAR2 [facility] [place] [facility] Obesity Obesity Problem Active [facility] HL7[facility]CCDAR2 [facility] [place] [facility] Encounter Encounter Problem Active Uni vers for for HL7.CCDAR2 [place] [facility] tristan [facility] management management an s Encounter Encounter Problem Active Uni vers for for HL7.CCDAR2 [facility] pr[facility]anth prashanth Physici examinatio examinatio an s n without n without abnormal abnormal finding finding Chronic Chronic Problem Active Univers hepatitis hepatitis HL7.CCDAR2 [facility] [place] [facility] Anemia Problem Resolve 2015-12-06 Barry kervin (disorder) d 01:03:38 l Anemia [place] (disorder) Resolved Problem 12/06/2015 [facility] Thalassemi Problem Active 2015-12-06 M emoria a 01:03:38 l (disorder) Kehinde n Thalassemi a (disorder) Active Problem 12/06/2015 [facility] Diagnosis Active 2015-11-01 Memoria RELATED 17:11:00 l CONDITIONS Kehinde n , UNSP, UNSP RELATED CONDITIONS , UNSP, UNSP Active [facility] PROLONGED Diagnosis Active 2015-12-01 Memoria 00:54:00 l Heriberto PROLONGED Active [facility] Other Problem 2019-06-07 2019-06-07 M emoria specified 06-05 21:35:05 21:35:05 l Other 17:00: Kehinde ram related specified 00 conditions , related unspecifie conditions d , trimester unspecifie d trimester 06/05/2019 06/07/2019 [facility] 27 weeks Problem 2019-06-07 2019-06-07 Memoria gestation 06-05 21:35:05 21:35:05 l of 27 weeks 17:00: Kehinde ram gestation 00 of 06/05/2019 06/07/2019 [facility] Allergies, Adverse Reactions, Alerts This patient has no known allergies or adverse reactions. Family History Family Member Diagnosis Comments Start Date Stop Date Source Natural father No Known Problems Jomar Pepper Natural mother No Known Problems Jomar Pepper Social History Social Habit Start Date Stop Date Quantity Comments Source Sex Assigned At [facility] ethodist Alcohol intake 2019-08-28 2019-08-28 Ex-drinker [facility] thodist 00:00:00 00:00:00 (finding) Social History 2015-12-01 2015-12-01 [facility] 07:48:54 07:48:54 Smoking Status Start Date Stop Date Source Smoker. current status unknown [facility] Never smoker [facility] Medications Ordered Filled Start Stop Current Ordering Indication Dosage Frequency Signature Comments Components Source Medication Medication Date Date Medication? Clinician (SIG) Name Name ferrous 2018-10- No 325mg Q.5D Take 1 [place] sulfate 10-30 tablet Methodi (FERROUSUL) 00:00: 23:59 ([address] 325 (65 FE) 00 :00 total) by MG tablet mouth 2 (two) times a day for 30 days. ibuprofen 2018-10- No 600mg Q6H Take 1 [place] (ADVIL) 600 10-30 tablet Metho di MG tablet 00:00: 23:59 ([address] 00 :00 total) by mouth every 6 (six) hours as needed for mild pain for up to 30 days. docusate 2018-10- No 100mg Q.5D Take 1 [place] sodium 10-30 capsule Methodi (COLACE) 00:00: 23:59 ([address] 100 MG 00 :00 total) by capsule mouth 2 (two) times a day for 10 days. acetaminoph 2018-10- No acute pain 1{tbl} Q4H Take 1 Bhatt en-codeine 10-30 tablet by Met mazariegos (TYLENOL 00:00: 23:[address] WITH 00 :00 every 4 CODEINE #3) (four) 300-30 mg hours as per tablet needed for moderate pain for up to 10 days .Acute Pain. CITRANATAL 2018-10 Yes [place] 90 DHA, 10-24 Methodi ALGAL OIL, 00:00: st 90 mg 00 iron-1 mg -50 mg-300 mg combo pack ferrous 2018-10 2019- No 1{tbl} Q.5D Take 1 [place] sulfate 325 08-30 tablet by Me moniqueodi (65 FE) MG 00:00: 00:[address] tablet 00 :00 (two) times a day. Desmond Logan Yes DEMI APPLY 1 Un marianne 150-35 150-35 4-05 BRAGG PATCH ity of MCG/24HR MCG/24HR 00:00: M.D. WEEKLY [place] Transdermal Transdermal 00 DIRECTED. Physici Patch Patch ans Weekly Weekly No 1 tab, Memoria Multivitami 2-19 Route: PO, l ns oral 15:00: Drug Form: Herm eulalia tablet 00 TAB, Dosing Weight 85, kg, Daily, Start date: 12/02/15 9:00:00, Duration: 30 day, Stop date: 12/31/15 9:00:00 No 1 tab, Memoria Multivitami 2-19 Route: PO, l ns oral 15:00: Drug Form: Herm eulalia tablet 00 TAB, Dosing Weight 85, kg, Daily, Start date: 12/02/15 9:00:00, Duration: 30 day, Stop date: 12/31/15 9:00:00 Yes 1 tab, PO, Mem oria Multivitami 2-18 Daily, # l ns with 21:28: 30 tab, 6 Patricia nn Folic Acid 00 Refill(s) 0.8 mg oral tablet ibuprofen Yes 600 mg = 1 Me moria 600 mg oral 2-18 tab, PO, l tablet 21:28: Q6H, PRN [place] 00 Pain Score 4-6, # 40 tab, 0 Refill(s) docusate Yes 100 mg = 1 Mem oria sodium 100 2-18 cap, PO, l mg oral 21:28: BID, PRN [place] n capsule 00 Constipati on, # 60 cap, 0 Refill(s) Yes 1 tab, PO, Mem oria Multivitami 2-18 Daily, # l ns with 21:28: 30 tab, 6 Patricia nn Folic Acid 00 Refill(s) 0.8 mg oral tablet ibuprofen Yes 600 mg = 1 Me moria 600 mg oral 2-18 tab, PO, l tablet 21:28: Q6H, PRN [place] 00 Pain Score 4-6, # 40 tab, 0 Refill(s) docusate Yes 100 mg = 1 Mem oria sodium 100 2-18 cap, PO, l mg oral 21:28: BID, PRN [place] n capsule 00 Constipati on, # 60 cap, 0 Refill(s) 0.5 ML No Notes: Memoria Bordetella 2-18 (Tdap ) l pertussis 17:00: For [place] filamentous 00 Adolecent hemagglutin and Adult in vaccine, use For IM inactivated Use. Same 0.01 MG/ML as: Adacel / (Tdap) Bordetella pertussis fimbriae 2/3 vaccine, inactivated 0.01 MG/ML / Bordetella pertussis pertactin vaccine, inactivated 0.006 MG/ML / Bordetella pertussis toxoid vacci M-M-R II No Notes: Memoria 2-18 (Same as: l 17:00: M-M-R II) Heriberto 00 (measles-m umps-rubel la virus vaccine 0.5 ml INJ VL) WASTE: F/P - Red; E -Red GIVE PRIOR TO DISCHARGE 0.5 ML No Notes: Memoria Bordetella 2-18 (Tdap ) l pertussis 17:00: For Heriberto Adolecent hemagglutin and Adult in vaccine, use For IM inactivated Use. Same 0.01 MG/ML as: Adacel / (Tdap) Bordetella pertussis fimbriae 2/3 vaccine, inactivated 0.01 MG/ML / Bordetella pertussis pertactin vaccine, inactivated 0.006 MG/ML / Bordetella pertussis toxoid vacci M-M-R II No Notes: Memoria 2-18 (Same as: l 17:00: M-M-R II) Heriberto 00 (measles-m umps-rubel la virus vaccine 0.5 ml INJ VL) WASTE: F/P - Red; E -Red GIVE PRIOR TO DISCHARGE Ibuprofen No Notes: Memori a 2-18 (Same as: l 16:25: Motrin) "Do Not Crush" Take with food. Acetaminoph No Notes: Do M emoria en 2-18 not exceed l 16:25: 4 gm/day. (Same as: Tylenol) lanolin No Notes: Memoria topical 2-18 (Same l 16:25: as:Lanolin ) zolpidem No Notes: Memoria 2-18 (Same As: l 16:25: Ambien) Methylergon No Notes: Barry kervin ovine 2-18 (Same l 16:25: as:Metherg ine) Benzocaine No Notes: Memor ia 200 MG/ML 2-18 (Same As: l Topical 16:25: Dermoplast Herm eulalia [place] ) WASTE: [Dermoplast Aerosol - ] Return to Pharmacy FOR EXTERNAL USE ONLY Bisacodyl No Notes: Memori a 2-18 (Same As: l 16:25: Dulcolax, Bisco-Lax) Lactated No 1,000 mL, Barry kervin Ringers IV 2-18 Rate: 100 l 1,000 mL 16:25: ml/hr, Infuse over: 10 hr, Route: IV, Dosing Weight 85 kg, Total Volume: 1,000, Start date: 12/01/15 10:25:00, Duration: 30 day, Stop date: 12/31/15 10:24:00 Oxytocin No Notes: Memoria 0.06 UNT/ML 2-18 (Same as: l Injectable 16:25: OXYTOCIN-D H ermann Solution 00 5LR) Docusate No Notes: Memoria 2-18 (Same as: l 16:25: Colace) Heriberto (Do Not Crush) Ondansetron No Notes: Barry kervin 2-18 (Same as: l 16:25: Zofran) Heriberto MEDICATION WASTE Product Size: 4 mg Product Wasted: ___ mg Ibuprofen No Notes: Memori a 2-18 (Same as: l 16:25: Motrin) Heriberto "Do Not Crush" Take with food. Acetaminoph No Notes: Do M emoria en 2-18 not exceed l 16:25: 4 gm/day. Heriberto (Same as: Tylenol) lanolin No Notes: Memoria topical 2-18 (Same l 16:25: as:Lanolin Heriberto ) zolpidem No Notes: Memoria 2-18 (Same As: l 16:25: Ambien) [place] 00 Methylergon No Notes: Barry kervin ovine 2-18 (Same l 16:25: as:Metherg [place] ine) Benzocaine No Notes: Memor ia 200 MG/ML 2-18 (Same As: l Topical 16:25: Dermoplast Herm eulalia [place] ) WASTE: [Dermoplast Aerosol - ] Return to Pharmacy FOR EXTERNAL USE ONLY Bisacodyl No Notes: Memori a 2-18 (Same As: l 16:25: Dulcolax, [place] Bisco-Lax) Lactated No 1,000 mL, Barry kervin Ringers IV 2-18 Rate: 100 l 1,000 mL 16:25: ml/hr, Heriberto Infuse over: 10 hr, Route: IV, Dosing Weight 85 kg, Total Volume: 1,000, Start date: 12/01/15 10:25:00, Duration: 30 day, Stop date: 12/31/15 10:24:00 Oxytocin No Notes: Memoria 0.06 UNT/ML 2-18 (Same as: l Injectable 16:25: OXYTOCIN-D H ermann Solution 00 5LR) Docusate No Notes: Memoria 2-18 (Same as: l 16:25: Colace) (Do Not Crush) Ondansetron No Notes: Barry kervin 2-18 (Same as: l 16:25: Zofran) MEDICATION WASTE Product Size: 4 mg Product Wasted: ___ mg Oxytocin No Notes: Memoria 0.06 UNT/ML 2-18 (Same as: l Injectable 08:25: OXYTOCIN-D H ermann Solution 00 5LR) Oxytocin No Notes: Memoria 0.06 UNT/ML 2-18 (Same as: l Injectable 08:25: OXYTOCIN-D H ermann Solution 00 5LR) Citric Acid No Notes: Barry kervin / sodium 2-18 (Same As: l citrate 08:00: Bicitra, Kehinde n 00 Cytra-2) Sodium citrate-ci tric acid (500-334 mg/5 mL): 1 mL contains sodium 1 mEq/mL and bicarbonat e 1 mEq/mL Carboprost No Notes: Memor ia 2-18 (Same As: l 08:00: Hemabate) Misoprostol No Notes: Barry kervin 2-18 (Same l 08:00: as:Cytotec ) Take with food Methylergon No Notes: Barry kervin ovine 2-18 (Same l 08:00: as:Metherg ine) Famotidine No Notes: Memor ia 2-18 (Same as: l 08:00: Pepcid) Can be dilute in 5-10cc NS IVP: Slow IV push over at least 2 minutes. Citric Acid No Notes: Barry kervin / sodium 2-18 (Same As: l citrate 08:00: Bicitra, Kehinde n 00 Cytra-2) Sodium citrate-ci tric acid (500-334 mg/5 mL): 1 mL contains sodium 1 mEq/mL and bicarbonat e 1 mEq/mL Carboprost No Notes: Memor ia 2-18 (Same As: l 08:00: Hemabate) Heriberto Misoprostol No Notes: Barry kervin 2-18 (Same l 08:00: as:Cytotec Heriberto 00 ) Take with food Methylergon No Notes: Barry kervin ovine 2-18 (Same l 08:00: as:Metherg ine) Famotidine No Notes: Memor ia 2-18 (Same as: l 08:00: Pepcid) Can be dilute in 5-10cc NS IVP: Slow IV push over at least 2 minutes. 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 AREA (Same As: Kaylin) Calcium No 1,000 mL, Memor ia Chloride 18 1,000 l 0.0014 07:55: ml/hr, Heriberto MEQ/ML / 00 Infuse Potassium Over: 1 Chloride hr, Route: 0.004 IV, 1,000, MEQ/ML / Drug form: Sodium INJ, ONCE, Chloride Dosing 0.103 Weight 85 MEQ/ML / kg, Start Sodium date: Lactate 12/01/15 0.028 1:55:00, MEQ/ML Stop date: Injectable 12/01/15 Solution 1:55:00, Bolus for regional anesthesia per unit protocol lidocaine No Notes: Memori a 1% -18 (Same as: l injectable 07:55: Xylocaine) H ermann solution 00 Oxytocin No Notes: Memoria 0.06 UNT/ML -18 (Same as: l Injectable 07:55: OXYTOCIN-D H ermann Solution 00 5LR) Lactated No 1,000 mL, Barry kervin Ringers IV 18 Rate: 125 l 1,000 mL 07:55: ml/hr, [place] 00 Infuse over: 8 hr, Route: IV, Dosing Weight 85 kg, Total Volume: 1,000, Start date: 12/01/15 1:55:00, Duration: 30 day, Stop date: 12/31/15 1:54:00 Butorphanol No Notes: Barry kervin 2-18 (Same As: l 07:55: Stadol) MEDICATION WASTE Product Size: 2 mg Product Wasted: ___ mg lidocaine No Notes: Memori a 1% 2-18 (Same as: l 07:55: Xylocaine) Ondansetron No Notes: Barry kervin 2-18 (Same as: l 07:55: Zofran) MEDICATION WASTE Product Size: 4 mg Product Wasted: ___ mg ferrous Yes PO, 0 Memoria sulfate -18 Refill(s) l 07:55: [place] 00 Terbutaline No Notes: Barry kervin 2-18 DO NOT l 07:55: USE IN EQUIPMENT MAINTENANCE TECHNICIAN AREA (Same As: Kaylin) Calcium No 1,000 mL, Memor ia Chloride 12-01 1,000 l 0.0014 07:55: ml/hr, MEQ/ML / 00 Infuse Potassium Over: 1 Chloride hr, Route: 0.004 IV, 1,000, MEQ/ML / Drug form: Sodium INJ, ONCE, Chloride Dosing 0.103 Weight 85 MEQ/ML / kg, Start Sodium date: Lactate 12/01/15 0.028 1:55:00, MEQ/ML Stop date: Injectable 12/01/15 Solution 1:55:00, Bolus for regional anesthesia per unit protocol lidocaine No Notes: Memori a 1% 2-18 (Same as: l injectable 07:55: Xylocaine) H ermann solution 00 Oxytocin No Notes: Memoria 0.06 UNT/ML -18 (Same as: l Injectable 07:55: OXYTOCIN-D H ermann Solution 00 5LR) Lactated No 1,000 mL, Barry kervin Ringers IV 18 Rate: 125 l 1,000 mL 07:55: ml/hr, [place] 00 Infuse over: 8 hr, Route: IV, Dosing Weight 85 kg, Total Volume: 1,000, Start date: 12/01/15 1:55:00, Duration: 30 day, Stop date: 12/31/15 1:54:00 Butorphanol No Notes: Barry kervin 2-18 (Same As: l 07:55: Stadol) MEDICATION WASTE Product Size: 2 mg Product Wasted: ___ mg lidocaine No Notes: Memori a 1% 2-18 (Same as: l 07:55: Xylocaine) Ondansetron No Notes: Barry kervin 2-18 (Same as: l 07:55: Zofran) MEDICATION WASTE Product Size: 4 mg Product Wasted: ___ mg Fe C Yes 1 tab, PO, Memoria 1-18 Daily, 0 l 07:45: Refill(s) Heriberto 00 Fe C Yes 1 tab, PO, Memoria 1-18 Daily, 0 l 07:45: Refill(s) [place] 00 [place] 5/325 Yes Harpal R 1-2 tab, Memoria oral tablet 10-19 PO, Q4-6H, l 09:45: Pain, # 15 Heriberto 00 tab, 0 Refill(s) [place] 5/325 Yes Harpal R 1-2 tab, Memoria oral tablet 10-19 PO, Q4-6H, l 09:45: Pain, # 15 [place] 00 tab, 0 Refill(s) Cytotec 200 Yes Harpal R 200 Barry kervin mcg oral 10-19 microgram l tablet 09:43: = 1 tab, Heriberto 00 PO, QID, # 4 tab, 0 Refill(s) Cytotec 200 Yes Harpal R 200 Barry kervin mcg oral 10-19 microgram l tablet 09:43: = 1 tab, [place] 00 PO, QID, # 4 tab, 0 Refill(s) acetaminoph No Harpal R 1 tab, Me moria en-hydrocod 10-19 Route: PO, l one 325 08:21: Drug Form: Herm eulalia mg-5 mg 00 TAB, oral tablet Dosing Weight 52.273, kg, ONCE, STAT, Start date: 10/19/13 2:21:00, Stop date: 10/19/13 2:21:00( me as: [place] 325/5) Do not exceed 4gm/day of acetaminop hen. acetaminoph No Harpal R 1 tab, Me moria en-hydrocod 10-19 Route: PO, l one 325 08:21: Drug Form: Herm eulalia mg-5 mg 00 TAB, oral tablet Dosing Weight 52.273, kg, ONCE, STAT, Start date: 10/19/13 2:21:00, Stop date: 10/19/13 2:21:00( me as: [place] 325/5) Do not exceed 4gm/day of acetaminop hen. Immunizations Ordered Immunization Filled Immunization Date Status Commen ts Source Name Name Tdap 2019-08-29 [facility] 00:00:00 Caodaism Vital Signs Vital Name Observation Time Observation Value Comments Source Systolic blood 2019-08-30 121 mm[Hg] [place] pressure 07:13:10 Caodaism Diastolic blood 2019-08-30 79 mm[Hg] [place] pressure 07:13:10 Caodaism Heart rate 2019-08-30 72 /min [place] 07:13:10 [place] Body temperature 2019-08-30 36.67 Chava [place] 07:13:10 [place] Respiratory rate 2019-08-30 18 /min [place] 07:13:10 Ca[facility] Oxygen saturation 2019-08-29 99 /min [place] in Arterial blood 19:29:36 Caodaism by Pulse oximetry Systolic (mm Hg) 2019-06-05 [facility] rmann 16:38:00 Diastolic (mm Hg) 2019-06-05 [facility] ermann 16:38:00 Heart Rate 2019-06-05 [facility] Kehinde n 16:38:00 Respitory Rate 2019-06-05 [facility] eulalia 16:38:00 Temperature Oral 2019-06-05 98.1 F [facility] rmann (F) 16:38:00 Height 2019-06-05 162.56 cm [facility] Kehinde n 16:38:00 BMI Calculated 2019-06-05 [facility] eulalia 16:38:00 Weight 2019-06-05 [facility] Kehinde n 16:38:00 BP Systolic 2018-01-30 110 mm[Hg] Location: [place] [address]:38:00 Position: [place] Physician s Sitting BP Diastolic 2018-01-30 74 mm[Hg] Location: [facility] 13:38:00 Position: [place] Physician s Sitting Height 2018-01-30 64 [in_us] University 13:38:00 [place] Physician s Weight 2018-01-30 168 [lb_av] University 13:38:00 [place] Physician s Body Mass Index 2018-01-30 28.84 kg/m2 University o f Calculated 13:38:00 [place] Physician s Heart Rate 2018-01-30 80 /min University 13:38:00 [place] Physician s BP Systolic 2018-01-16 125 mm[Hg] Location: [email or web address] 15:34:00 Position: [place] Physician s Sitting BP Diastolic 2018-01-16 80 mm[Hg] Location: [facility] 15:34:00 Position: [place] Physician s Sitting Height 2018-01-16 64 [in_us] University 15:34:00 [place] Physician s Weight 2018-01-16 169.25 [lb_av] University 15:34:00 [place] Physician s Body Mass Index 2018-01-16 29.05 kg/m2 University o f Calculated 15:34:00 [place] Physician s Heart Rate 2018-01-16 81 /min University 15:34:00 [place] Phys[facility] Systolic (mm Hg) 2015-12-03 [facility] 14:06:00 Diastolic (mm Hg) 2015-12-03 [facility] ermann 14:06:00 Respitory Rate 2015-12-03 [facility] 14:06:00 Heart Rate 2015-12-03 [facility] Kehinde n 14:06:00 Temperature Oral 2015-12-03 98.2 F [facility] rmann (F) 14:06:00 Systolic (mm Hg) 2015-12-03 [facility] 06:15:00 Diastolic (mm Hg) 2015-12-03 [facility] ermann 06:15:00 Respitory Rate 2015-12-03 [facility] 06:15:00 Heart Rate 2015-12-03 [facility] Kehind[place] n 06:15:00 Temperature Oral 2015-12-03 98.2 F [facility] rmann (F) 06:15:00 Temperature Oral 2015-12-03 98.1 F [facility] He rmann (F) 01:09:00 Systolic (mm Hg) 2015-12-03 [facility] 01:09:00 Diastolic (mm Hg) 2015-12-03 [facility] ermann 01:09:00 Respitory Rate 2015-12-03 [facility] 01:09:00 Heart Rate 2015-12-03 [facility] Kehind[place] n 01:09:00 Height 2015-12-01 162.56 cm [facility] Kehinde n 07:53:00 BMI Calculated 2015-12-01 [facility] 07:53:00 Weight 2015-12-01 [facility] Kehind[place] n 07:53:00 Systolic (mm Hg) 2015-11-26 [facility] 10:11:00 Diastolic (mm Hg) 2015-11-26 [facility] ermann 10:11:00 Temperature Oral 2015-11-26 98.2 F [facility] rmann (F) 10:11:00 Respitory Rate 2015-11-26 [facility] 10:11:00 Weight 2015-11-26 [facility] [place] n 10:05:00 BMI Calculated 2015-11-26 [facility] 10:05:00 Height 2015-11-26 162.56 cm [facility] Kehinde n 10:05:00 BMI Calculated 2015-11-26 [facility] 10:02:00 Weight 2015-11-26 [facility] Kehinde n 10:02:00 Height 2015-11-26 162.56 cm Memorial Kehinde n 10:02:00 Systolic (mm Hg) 2015-10-31 [facility] r[facility] 07:41:00 Diastolic (mm Hg) 2015-10-31 [facility] ermann 07:41:00 Weight 2015-10-31 [facility] Kehinde n 07:40:00 Height 2015-10-31 162.56 cm [facility] Kehinde n 07:40:00 BMI Calculated 2015-10-31 [facility] 07:40:00 Diastolic (mm Hg) 2013-10-19 [facility] ermann 09:53:00 Respitory Rate 2013-10-19 [facility] 09:53:00 Systolic (mm Hg) 2013-10-19 [facility] 09:53:00 Heart Rate 2013-10-19 [facility] Kehinde n 09:53:00 Weight 2013-10-19 [facility] Kehinde n 07:46:00 Height 2013-10-19 165.1 cm [facility] Ke[place]e n 07:46:00 Heart Rate 2013-10-19 [facility] Kehinde n 07:46:00 Respitory Rate 2013-10-19 [facility] 07:46:00 Diastolic (mm Hg) 2013-10-19 [facility] ermann 07:46:00 Systolic (mm Hg) 2013-10-19 [facility] rmann 07:46:00 Procedures Procedure Date / Time Performing Clinician Source Performed HC COMPLETE BLD COUNT 2019-08-29 05:53:00 Ifeanyi Rodrigues Ca[facility]ism W/AUTO DIFF ANESTHESIA EPIDURAL 2019-08-28 16:33:29 Bora Garcia [facility] BLOCK Harshadkumar HC COMPLETE BLD COUNT 2019-08-28 08:40:00 Ifeanyi Rodrigues uselaine [facility] W/AUTO DIFF HEPATITIS B SURFACE 2019-08-28 08:40:00 Ifeanyi Rodrigues ton [facility] ANTIGEN TYPE AND SCREEN, 2019-08-28 08:40:00 Ifeanyi Rodrigues [facility] OBSTETRICAL PATIENT HEPATITIS B SURFACE AG 2019-08-28 08:40:00 Ifeanyi Rodrigues [facility] CONFIRMATION BETA STREP SCREEN 2019-08-06 00:00:00 Provider, Historical [place] [facility] CULTURE WITH ALVAREZ BROTH RPR TITER WITH REFLEX 2019-08-06 00:00:00 Provider, Historical H [place] [facility] TO CONFIRMATION CBC WITH PLATELET AND 2019-08-06 00:00:00 Provider, Historical [place] [facility] DIFFERENTIAL HEPATITIS B SURFACE 2019-08-06 00:00:00 Provider, Historical Jomar ston [facility] ANTIGEN HIV 1, 2 ANTIBODY 2019-08-06 00:00:00 Provider, Historical [place] [facility] GONORRHOEAE CULTURE 2019-07-02 00:00:00 Provider, Historical Jomar ston [facility] CHLAMYDIA CULTURE 2019-07-02 00:00:00 Provider, Historical [place] [facility] RPR TITER WITH REFLEX 2019-07-02 00:00:00 Provider, Historical [place] [facility] TO CONFIRMATION TYPE AND SCREEN, 2019-07-02 00:00:00 Provider, Historical [place] n [facility] OBSTETRICAL PATIENT GESTATIONAL DIABETES 2019-07-02 00:00:00 Provider, Historical [place] [facility] SCREEN CBC WITH PLATELET AND 2019-07-02 00:00:00 Provider, Historical [place] [facility] DIFFERENTIAL HEPATITIS B SURFACE 2019-07-02 00:00:00 Provider, Historical Jomar ston [facility] ANTIGEN HIV 1, 2 ANTIBODY 2019-07-02 00:00:00 Provider, Historical [place] [facility] RUBELLA AB IGG 2019-07-02 00:00:00 Provider, Historical [place] [facility] . [facility] - Affirm VPIII 2018-01-30 00:00:00 [facility] (BV Panel) Physicians . [facility] - PAP 2018-01-30 00:00:00 [facility] [place] [facility] [QH] HEPATITIS B 2018-01-30 00:00:00 [facility] SURFACE ANTIGEN W/REFL Physician s CONFIRM [QH] HIV AB, HIV 1/2, 2018-01-30 00:00:00 [facility] EIA, WITH REFLEXES Physicians [QL] HEPATITIS C 2018-01-30 00:00:00 [facility] ANTIBODY Physicians [QL] RPR 2018-01-30 00:00:00 [place] [facility] Physicians [[facility]] CMP W/EGFR 2018-01-30 00:00:00 [facility] Physicians Plan of Care Planned Activity Planned Date Details Comments Source Future Scheduled 2020-05-14 INFLUENZA VACCINE [place] [facility] Test 00:00:00 [code = INFLUENZA VACCINE] Future Scheduled 2003 Screening for [facility] Test 00:00:00 malignant neoplasm of cervix (procedure) [code = 289712593] Encounters Start End Encounter Admission Attending Care Care Encounter Source Date/Time Date/Time Type Type Clinicians Facility Department ID 2019-06-05 2019-06-05 Outpatient Violetta, 2.16.840. 2.16.840.1. 4 [id number] 11:05:56 12:13:00 Fangxian [id number]. [id number] 00 3.615.120 5.120 2019-06-05 2019-06-05 Outpatient Violetta, 2.16.840. 2.16.840.1. 4 [id number] 11:05:56 12:13:00 Fangxian [id number]. [id number] 3.615.120 5.120 2019-06-05 2019-06-05 Emergency E MHCY MHCY 7500 MHCY 11:05:00 11:05:00 2018-01-30 2018-01-30 Appointmen SHARAN BRAGG Unloading Checker [id number] Univers 13:30:00 13:30:00 t; yordy SIMMS of BRAGG, MMis Arguelles i, M.D. ans 2018-01-16 2018-01-16 Ravi BRAGG, UTP UTP [id number] Univers 15:15:00 15:15:00 t; yordy SIMMS of Seth BRAGG Physic i M.D. ans 2015-12-01 2015-12-03 Outpatient Eduardo [facility] [id number] 00:51:00 14:23:00 Ifeanyi Swain 52 2015-12-01 2015-12-03 Outpatient Eduardo [facility] [id number] 00:51:00 14:23:00 Ifeanyi Swain 52 2015-11-26 2015-11-26 Outpatient Romaine, [facility] [id number] 04:03:00 05:50:00 Apolinar 44 Placido 2015-11-26 2015-11-26 Outpatient Romaine [facility] [id number] 04:03:00 05:50:00 Apolinar 44 Placido 2015-10-31 2015-10-31 Outpatient De La Cruz-Agarw [facility] [id number] 01:29:00 02:11:00 al, Josiah S 2015-10-31 2015-10-31 Outpatient De La Cruz-Agarw [facility] [id number] 01:29:00 02:11:00 al, Josiah S 2013-10-19 2013-10-19 Outpatient MHIE MHIE [id number] Memoria 01:45:00 03:54:00 00 nova [facility] 2013-10-19 2013-10-19 Outpatient MHIE MHIE [id number] Memoria 01:45:00 03:54:00 00 nova [facility] Results Test Description Test Time Test Comments Results Result Comments Source CBC with platelet and differential 2019-08-29 06:43:23 Test Item Value Reference Range Interpretation Comme nts WBC (test code = 90054-2) 8.6 4.5- 11.0 k/uL Results repeated RBC (test code = 31069-9) 4.76 4.20- 5.50 M/uL HGB (test code = 718-7) 10.8 g/dL 14-18 L HCT (test code = 4544-3) 33.4 % 37-47 L MCV (test code = 787-2) 70.2 fL 82-100 L MCH (test code = 785-6) 22.7 pg 27-34 L MCHC (test code = 786-4) 32.3 g/dL 31-37 RDW - SD (test code = 30358-0) 37.4 fL 37-55 MPV (test code = 39389-8) 13.0 fL 8.8-13.2 Platelet count (test code = 185 K/uL 150-400 42634-8) Nucleated RBC (test code = 0.00 /100 WBC 83078-4) Neutrophils (test code = 73.6 % 39-69 H 66266-0) Lymphocytes (test code = 17.7 % 25-45 L 80388-3) Monocytes (test code = 73444-2) 8.0 % 0-10 Eosinophils (test code = 0.3 % 0-5 03895-3) Basophils (test code = 48830-3) 0.1 % 0-1 Immature granulocytes (test code 0.3 % 0-1 "Immature granulocytes" = 52537-7) (promyelocytes, myelocytes, metamyelocytes) Lab Interpretation (test code = Abnormal 19121-6) [facility]Hepatitis B surface Ag okcnefzvhwzw8960-35-41 22:29:29 Test Item Value Reference Range Interpretation Comments Hepatitis B surface Ag confirmation Confirmed Non-reactive A (test code = 1511) Lab Interpretation (test code = Abnormal 03620-2) Bhatt MethodistHepatitis B surface xftreoj7102-97-21 22:23:24 Test Item Value Reference Range Interpretation Comments Hepatitis B surface Ag Reactive Non-reactive A Sent to [facility] for (test code = 5195-3) confirm ation. Notified Leighann Garcia RN at 11 :18 08/28/2019 wlab ld Lab Interpretation (test Abnormal code = 98771-3) [facility] MethodistEpidural Urzki8515-63-10 16:33:29Bora Garcia MD 08/28/2019 4:34 PMEpidural BlockDate/Time: 08/28/2019 4:25 PMPerformed by: Bora Garcia, MDAuthorized by: Bora Garcia MD Patient Location: OBStart Time: 08/28/2019 4:16 PMEnd Time: 08/28/2019 4:33 PMReason for Block: at surgeon's request, post-op pain management, procedure for pain, labor epidural Anesthesiologist: Bora Garcia MDPerformed by: AnesthesiologistPreprocedure: patient identified, IV checked, site and side verified, risks and benefits discussed, procedure verified, surgical consent completed, patient position confirmed, monitors and equipment checked, pre-op evaluation completed and coagulation status reviewed Time Out Performed: 08/28/2019 4:16 PMPatient Position: SittingPrep: ChloraPrep and patient draped Monitoring: Blood pressure monitoring, continuous pulse oximetry and heart rateApproach: MidlineInterspace: L3-4Injection Technique: SIMONA air and SIMONA salineNeedle Type: HusteadNeedle Gauge: 17Loss of resistance: 5 cmCatheter at Skin Depth: 10 cmTest Dose: Negative and lidocaine 1.5% with epinephrine 1-to-200,000Number of Attempts: 1Pump program started: pain pump Block Outcome: Noapparent complications, patient comfortable and patient tolerated procedure wellPost-procedure: Sterile dressing applied, patient returned to supine position and left lateral displacementEvents: no paresthesia, no blood aspirated and no CSF Time: 08/28/2019 4:16 PMPump program changed: pain pump Medications AdministeredLidocaine 1.5% w/epINEPHrine PF (mg), 3 mLHouaddison [facility] MethodistType and screen, obstetrical yfwuhnl0885-11-32 10:33:00 Test Item Value Reference Range Interpretation Comments ABO grouping (test code = 883-9) O Rh type (test code = 55610-5) POS Antibody screen (gel) (test code = NEG 890-4) Miller PinedoistHIV 1, 2 nnwklfii1133-81-28 00:00:00 Test Item Value Reference Range Interpretation Comments HIV 1, 2 antibody (test code = negative 7918-6) Miller PinedoistBeta strep screen culture with alvarez hlrmt3519-70-13 00:00:00 Test Item Value Reference Range Interpretation Comments Strep gp B culture (test code = negative 3012) Miller MethodistRPR titer with reflex to haxejkygvkue5645-89-29 00:00:00 Test Item Value Reference Range Interpretation Comments RPR (dx) w/refl titer and nonreactive confirmatory testing (test code = 2987) Millre PepperGonorrhoeae tcwzgpf4574-07-65 00:00:00 Test Item Value Reference Range Interpretation Comments Gonorrhoeae culture isolate (test negative code = 1468) Miller PepperChlamydia ijwdaci5366-01-00 00:00:00 Test Item Value Reference Range Interpretation Comments Chlamydia culture isolate (test code negative = 1064) Miller PinedoistRubella Ab EyF5417-54-82 00:00:00 Test Item Value Reference Range Interpretation Comments Rubella IgG antibody (test code = immune 1240514) Bhatt MethoderasmoGestational Diabetes Vwcrcz3371-69-62 00:00:00 Test Item Value Reference Range Interpretation Comments Gestational diabetes screen (test code 97 = 3404) Miller Pepper[[facility]] CMP W/VBDJ1408-88-37 14:25:01 Test Item Value Reference Range Interpretation Comments Sodium Level 141 {mEq/l} 135-145 (test code = 2951-2) Potassium Level 3.7 {mEq/l} 3.5-5.1 (test code = 2823-3) Chloride Level 107 {mEq/l} 95-109 (test code = 5-0) Carbon Dioxide 28 {mEq/l} 24-32 (test code = 2027-9) AGAP; Below Low 9.7 {mEq/l} 10.0-20.0 Threshold (test code = 65769-7) Glucose Lvl (test 83 mg/dl 70-99 Adult refe rence range code = 2345-7) values reflec t the clinical guidel inesof the [place] Diabet es Association. Creatinine Lvl 0.60 mg/dl 0.50-1.40 (test code = 2160-0) Blood Urea 14 mg/dl 7-22 Nitrogen (test code = 3094-0) BUN/Creatinine 23 6-25 Ratio (test code = 3097-3) Total Protein 7.6 g/dl 6.4-8.4 (test code = 2885-2) Albumin Lvl (test 3.6 g/dl 3.5-5.0 code = 1751-7) Globulin (test 4.0 g/dl 2.7-4.2 code = 23457-8) A/G Ratio (test 0.9 0.7-1.6 code = 1759-0) Calcium Level 9.1 mg/dl 8.5-10.5 Total (test code = 38034-3) ALT (test code = 22 u/l 0-65 1743-4) AST (test code = 8 u/l 0-37 98591-7) Bili Total (test 0.2 mg/dl 0.2-1.3 code = 1975-2) Alk Phos (test 47 u/l 39-136 code = 1783-0) eGFR (test code = 137 The eGFR i s calculated 90851-7) {ML/MIN/1.7} using the CKD-E PI formula. In mos t young, healthyindividu als the eGFR will be >9 0 mL/min/1.73m2. The eGFR declines with a ge. AneGFR of 60-89 may be normal in some population s, particularly th e elderly, forwhom the CKD -EPI formula has not been extensively josh idated. Use of the eGFR isnot recommended in the following populations:Ind ividuals with unstable c reatinine concentrations, including patient s and those with seri ous co-morbid conditions.Loida ents with extremes in mus lili mass or diet.The landon a above are obtained fr om the National Kidney Disease Education Progr am(NKDEP) which fritz rajput recommends that when the eGFR is used in patientswith ex tremes of body mass index for purposes of yessy g dosing, the eGFR should be multiplied by t he estimated BMI. [facility]] HEPATITIS C KZYACSTN9910-70-59 14:25:01 Test Item Value Reference Range Interpretation Comments Hepatitis C Antibody (test code = Negative 54126-7) [facility][] HIV AB, HIV 1/2, EIA, WITH RFSMUGCV7645-11-85 14:25:01 Test Item Value Reference Range Interpretation Comments HIV Ag/Ab 4th Gen (test code = Negative Negative 11174-7) [facility][] HEPATITIS B SURFACE ANTIGEN W/REFL CONFIRM 2018-01-30 14:25:01 Test Item Value Reference Range Interpretation Comments Hepatitis B Surface Antigen (test Positive Negative code = 5195-3) Hep Bs Ag Conf (test code = Hep Bs Confirmed Ag Conf) [facility]] [id number] 14:25:01 Test Item Value Reference Range Interpretation Comments RPR (test code = 43402-5) Non Reactive Non Reactive [facility][O] Urine Test (in office)2018-01-30 13:46:00 Test Item Value Reference Range Interpretation Comments Test, Urine; Normal (test neg N code = 2106-3) [facility]. [facility] - [id number] 00:00:00 Test Item Value Reference Range Interpretation Comments PAP REPORT (test code = 32360-9) See Comment [facility][O] Urine Test (in office)2018-01-16 17:04:00 Test Item Value Reference Range Interpretation Comments Test, Urine; Normal (test negative N code = 2106-3) [facility] HdpkgcdhtyISRZWLGYWN1236-26-30 10:16:009.6[facility] ODOLIQBEHM5758-43-95 10:16:0029.1[facility] VumiruxWMVYSBWYXV1900-33-06 10:16:00 9.6[facility] QsfdnfeSYAIIRCAEO1449-00-64 10:16:0029.1[facility] 2015-12-01 08:29:009.1[facility] BtgarbmUVRHHMGWYY5532-70-32 08:29:46566Obhzdaei FeaylfjPGATBGILQW1218-10-50 08:29:0015.9[facility] NupgtjkWZRKTIUVHW8137-43-92 08:29:0010.0[facility] MeykgqqEYNPZIWOKG5221-55-22 08:29:0030.9[facility] TPJQIBIESW4171-14-73 08:29:0069.1[facility] HcgqjqaLMAWRVMPEP4714-40-04 08:29:00 5.9[facility] TaridqeNIAZYLIPIE0264-43-13 08:29:004.46[facility] 2015-12-01 08:29:00 Test Item Value Reference Range Interpretation Comments MCH (test code = MCH) 22.4 pg 27.0-31.0 [facility] HdnafzuBXEPEYJYIE0420-20-68 08:29:0032.5[facility] 2015-12-01 08:29:000.5[facility] ShijngdPHFAPMPBUA0746-15-80 08:29:002.2[facility] KgxtjvaYZHUBGDYYO0073-92-43 08:29:002+ *ABN*(12/01/15 2:29 AM)[facility] HIZPUYJPWM5592-64-03 08:29:003.2[facility] IwlyymdPSYGGBLIYI9616-95-88 08:29:000.3 [facility] BfnpepaTZMJWATXDU1639-65-85 08:29:0054.6[facility] 2015-12-01 08:29:0036.7[facility] FeyvbeiQOQOVJWBLY4957-01-12 08:29:008.0[facility] RedixzmXIBLSGAPUG2257-51-34 08:29:000.4[facility] EtkgchkFAUNMNEGDL2644-35-05 08:29:00Non Reactive *NA*(12/01/15 2:29 AM)[facility] HofaozeKZZGTKIUVJ0381-70-76 08:29:00Confirmed 1*NA*(12/01/15 2:29 AM)[facility] NrzagzhWTODHFOIUX8245-88-58 08:29:00Positive *NA*(12/01/15 2:29 AM)[facility] WdivlbeTGTVVPDWQF5318-16-46 08:29:00Negative *NA*(12/01/15 2:29 AM)[facility] FuayjwdNJKQWLYGGW1287-63-01 08:29:009.1[facility] YbmughbIGUJASZRCL8616-64-83 08:29:44656Qlughhlq Heriberto GHNEVVNFKI1841-07-74 08:29:0015.9[facility] RhdrshhJNCBPRUHMT6143-25-97 08:29:00 10.0[facility] BbbadyvUDYCHSQGUU9930-18-09 08:29:0030.9[facility]ann[facility] 2015-12-01 08:29:0069.1[facility] KvlpqnrXXDZKCYVPL4490-09-23 08:29:005.9[facility] KuyjfydZGBYMSYODA6434-66-39 08:29:004.46[facility] YtgfcfsOUUXMGLXEN2238-54-46 08:29:00 Test Item Value Reference Range Interpretation Comments MCH (test code = MCH) 22.4 pg 27.0-31.0 [facility] IfvfeeeCFFHKRCDLF3897-35-16 08:29:0032.5[facility]ann[facility]Y 2015-12-01 08:29:000.5[facility] PniwotkGRVTOULBOY0887-32-00 08:29:002.2[facility] AxsakqjYSOJLCFNOJ0471-69-60 08:29:002+ *ABN*(12/01/15 2:29 AM)[facility] HJVFEZZYQQ0857-24-80 08:29:003.2[facility] TssmszvWHOAUPGAKG9497-37-18 08:29:000.3 [facility] ZrfyippFVIKXZRQDX7149-78-33 08:29:0054.6[facility] 2015-12-01 08:29:0036.7[facility] IlkjzmnMHAEFTAUVO8762-19-49 08:29:008.0[facility] LacvagbAVXWTYTXSA9071-50-35 08:29:000.4[facility] RvmfhrmIMWITADYQG6094-66-08 08:29:00Non Reactive *NA*(12/01/15 2:29 AM)[facility] HmnafiyZWWJNRVRJC7851-56-08 08:29:00Confirmed 1*NA*(12/01/15 2:29 AM)[facility] IavtphnIGIQGXUSVK4767-55-28 08:29:00Positive *NA*(12/01/15 2:29 AM)[facility] JnhcxsmFOUPPQTGVZ3218-44-74 08:29:00Negative *NA*(12/01/15 2:29 AM)[facility]BL[facility] B[facility] RESULTS 2015-12-01 08:21:00Negative (12/01/15 2:21 AM)[facility]annBL[facility]OD BANK RESULTS 2015-12-01 08:21:00Negative (12/01/15 2:21 AM)[facility] DdvbdghEHCQDDIAM0917-99-31 08:15:175487Equzpvqz DkoiynsZDRJHKARVZ8537-03-39 08:15:06516Izuhctef [place] AJHPNAOFHY6071-33-58 08:15:009.0[facility] RrwthopMBATCXRVHA0140-92-59 08:15:00 11.4[facility] WvwjvltSCBYILJMKL4485-82-16 08:15:004.98[facility]OLOGY 2013-10-19 08:15:006.6[facility] KaremawPNMYBRCNUN8220-73-17 08:15:0035.2[facility] MvavzrzMWBEVSUFXY2148-23-45 08:15:0032.2[facility] LhjoxltECPAOMUVGZ0819-42-65 08:15:00 Test Item Value Reference Range Interpretation Comments MCH (test code = MCH) 22.8 pg 27.0-31.0 L [facility] KgluhjqGAPUURHLAK6696-49-77 08:15:0070.7[facility]annHEMATOLOGY 2013-10-19 08:15:0014.0[facility] UhoeczbEZPBOHOZQY2438-38-33 08:15:001.4[facility] QohprxkUIAZFTLOGF0774-83-26 08:15:004.6[facility] MeyyrpjVHSYJFWUVJ2787-20-38 08:15:000.1[facility] RewuihdWTFGKSPZSI4906-26-90 08:15:000.1[facility] TPNYOPZMKJ5593-87-00 08:15:0070.4[facility] SogrratXSXHSXFWBA7172-06-99 08:15:00 0.4[facility] AppgsgeOTQRVWYBTA5409-89-31 08:15:0021.2[facility]annHEMATOLOGY 2013-10-19 08:15:001.0[facility] OnokwwsDXRBGJDAAM2715-82-98 08:15:006.6[facility] GjmhfekRWOQOAIPJA2506-11-34 08:15:000.8[facility] PlucyfyPGUDNIGGB5219-84-56 08:15:345804Nqztnbkz HyyexqeLUXJRRIVSN4189-62-22 08:15:78212Kttdtfyh Heriberto GTFNJIRGQK5240-63-72 08:15:009.0[facility] BgevhvhLBHHXANPRV1225-80-15 08:15:00 11.4[facility] CmkrcehLWFGRUFUZG7718-11-32 08:15:004.98[facility] 2013-10-19 08:15:006.6[facility] PvpbsxjPGOEZAMKIR3013-77-60 08:15:0035.2[facility] RqhvoibQDVEBOCDFM1626-01-00 08:15:0032.2[facility] HctntdjGWISYXDYSW2638-27-13 08:15:00 Test Item Value Reference Range Interpretation Comments MCH (test code = MCH) 22.8 pg 27.0-31.0 L [facility] SzkcsakODGZYCDLDS7611-59-73 08:15:0070.7[facility]annHEMATOLOGY 2013-10-19 08:15:0014.0[facility] YnncpxoRKMIWATBQZ6913-58-96 08:15:001.4[facility] PeuztttVKGCICJREJ3124-69-43 08:15:004.6[facility] KfxlxdvCBLJODMSEQ9912-64-84 08:15:000.1[facility] ObqtjhpLCSTZMJBJN5688-59-89 08:15:000.1[facility] XCSRPONUAW4057-00-17 08:15:0070.4[facility] MaywhpbTRRJLUWOZX6087-83-44 08:15:00 0.4[facility] XzbvmzjJFOOZMCVYY5841-67-50 08:15:0021.2[facility] 2013-10-19 08:15:001.0[facility] MmdduazLNXEAYZSOU0096-72-13 08:15:006.6[facility] OryghohQDEDIWUGCI1920-90-08 08:15:000.8[facility]
--- NOTE | 2020-05-17 11:01 | EKG ---
Test Date: 2020-05-17 Test Time: 08:25:42 Telephone Answerer: CONNER MEASUREMENT RESULTS: Intervals: Rate: 68 OH: 202 QRSD: 82 QT: 378 QTc: 401 [place]: P: 54 OH: 202 QRS: 63 T: 31 INTERPRETIVE STATEMENTS: Normal sinus rhythm Normal ECG No previous ECG available for comparison Electronically Signed On 05-17-20 11:00:46 CDT by Yann Manzano
[2020-05-17] MEDS ORDERED: FENTANYL CITR 100 MCG/2 ML ONE (11:07)
[2020-05-17 11:44] LABS: Blood Morphology Comment NOTED (NOT SEEN); Platelet Estimate ADEQ; Urine White Blood Cell Casts OK
[2020-05-17 11:45] LABS: Ovalocytes 1+
[2020-05-17] MEDS ORDERED: EPHEDRINE SULF 50 MG/ML VIAL ONE (12:57)
[2020-05-17] MEDS ORDERED: MORPHINE 10 MG/ML VIAL ONE (12:58)
[2020-05-17] MEDS ORDERED: KETOROLAC 30 MG/ML INJ ONE (12:58)
[2020-05-17] MEDS: HYDROMORPHONE HCL 1 MG/ML INJ ONE ×2 (15:22→15:32)
[2020-05-17 16:02] VITALS: O2SAT 100
[2020-05-17] MEDS ORDERED: CODEINE 30MG/APAP 300MG TAB PO ONE (16:10)
[2020-05-17] MEDS ORDERED: CODEINE 30MG/APAP 300MG TAB ONE (16:18)
[2020-05-17 16:47] VITALS: BP 140/78; TEMP 97.5
--- NOTE | 2020-05-18 00:26 | OP ---
Surgeon: Kelton Nieto MD Social Sciences Instructor: Antonio. Preoperative Diagnosis: Breast descent. Postoperative Diagnosis: Breast descent. Procedure Performed: Breast lift. Anesthesia: General. Operative Note: After satisfactory induction of general anesthesia, chest was prepped with DuraPrep. Dry sterile drapes were applied in the usual manner. A 5 cm template was used to outline the right areola and left areola. Then, the transverse curvilinear incision was made. Intervening skin was de-epithelized with dermabrader and EpiCut. The transverse incision was made. Flap was thinned to 1.3 cm. Flap elevation continued towards the sternum, clavicle, and anterior axillary line, both sides simultaneously. Then, the inferolateral incision was made and then the de-epithelized tissue was formed in a cone. This was done with 2-0 PDS suture. Then, on the right breast, straps were elevated at 12 o'clock, 1:30, and 3 o'clock position. These straps were then woven in and out of the pectoralis major muscle, back to the base of the cone, pectoralis muscle, back to base of cone and tied and sewn with 2-0 PDS. This was done for 12 o'clock and 1:30 straps. The 3 o'clock strap was sewn over the sternum at the 3 o'clock position with 2-0 Ethibond. The wound was temporarily stapled shut. The mirror image procedure was done on the opposite side. The patient was sat up. Symmetry was checked. Dog ears were marked. The patient returned supine. The dog ears were cut out laterally. Then, a 10 YESICA was brought out the axilla, sewn in place with 2-0 silk and then the wound was closed and irrigated with antibiotic solution. Electrocautery was used for hemostasis. Closure consisted of 3-0 Vicryl subcu, 3-0 PDS running subcuticular, medial to lateral and lateral to medial, tied in the vertical meridian of the breast. Both sides were done and the patient was sat up. Site for new nipple-areolar complex was marked out. Tissue was cored out with a 5 cm template. Nipple was delivered and sewn with interrupted 4-0 PDS, followed by 4-0 PDS running subcuticular. Dressings of tincture of benzoin, Steri-Strips, 5 x 5s, fluffs, and Brayden wrap. The patient tolerated the procedure well and returned to recovery room. Amount removed from the right breast 82 g, left breast 96 g. NICOLE/CHELSEA Voice ID: [id number] Report ID: [id number] MTDD
== END 2020-05-17 16:47 | disposition home or self-care (01) ==
LOC: OR 08:44
PROVIDERS: ATTEND Specialist
PROC: 0HSV0ZZ Reposition Bilateral Breast, Open Approach (ICD-10-PCS; principal; 2020-05-17 09:00)
DX: N64.81 Ptosis of breast (principal); Z11.59 Encounter for screening for other viral diseases; Z01.818 Encounter for other preprocedural examination; Z01.810 Encounter for preprocedural cardiovascular examination; Z01.812 Encounter for preprocedural laboratory examination
CPT/HCPCS: 93005; 85025; 36415; 81025; 88305; 81003; 71046; 19316; J2704; J1580; J2250; J3010 ×2; J1100; J1170; J0690 ×2; J7120 ×4; J2405